=== PATIENT | male | born 1975 | race American Indian/Alaskan Native ===

== ENCOUNTER 2022-03-22 19:55 | Emergency (ER) | payer OTHER ==
[2022-03-22] MEDS ORDERED: ASPIRIN 325 MG TAB PO ONE (20:32)
[2022-03-22 21:04] LABS: Basophils % (Auto) 0.3 % (0.0-1.8); Hematocrit 42.6 % (35.5-45.6); Hemoglobin 14.2 gm/dl (11.8-15.2); Lymphocytes # (Auto) 1.2 K/mm3 (1.2-5.4); Lymphocytes % (Auto) 11.9 % (13.4-35.0); Mean Corpuscular HGB Conc 33 % (32-34); Mean Corpuscular Volume 81 fl (84-94); Monocytes # (Auto) 0.4 K/mm3 (0.0-0.8); Monocytes % (Auto) 4.1 % (0.0-7.3); Platelet Count 225 K/mm3 (140-440); Red Blood Count 5.24 M/mm3 (3.65-5.03); Red Cell Distribution Width 14.4 % (13.2-15.2)
--- NOTE | 2022-03-22 21:07 | XRay Report ---
XR chest routine 2V INDICATION / CLINICAL INFORMATION: CHEST PAIN. COMPARISON: None available. FINDINGS: SUPPORT DEVICES: None. HEART /PULMONARY VASCULATURE: No significant abnormality. LUNGS / PLEURA: No significant pulmonary or pleural abnormality. No pneumothorax. ADDITIONAL FINDINGS: No significant additional findings. IMPRESSION: 1. No acute findings. Signer Name: Alexandre Turcios MD Signed: 03/22/2022 9:03 PM Workstation Name: [id number]
[2022-03-22 21:29] LABS: Alanine Aminotransferase 55 units/L (7-56); Albumin 4.8 g/dL (3.9-5); BUN/Creatinine Ratio 9; Blood Urea Nitrogen 9 mg/dL (9-20); Calcium 9.9 mg/dL (8.4-10.2); Hemolysis Index 13
[2022-03-23] MEDS ORDERED: SODIUM CHLORIDE 0.9% 1000 ML 1,000 ML IV ONE (00:20)
[2022-03-23] MEDS ORDERED: METOCLOPRAMIDE 10 MG/2 ML INJ IV ONE (00:20)
[2022-03-23] MEDS ORDERED: diphenhydrAMINE 50 MG/ML VIAL IV ONE (00:20)
[2022-03-23] MEDS ORDERED: KETOROLAC 30 MG/1 ML INJ IV ONE (00:20)
--- NOTE | 2022-03-23 02:30 | Cat Scan Report ---
CT HEAD WITHOUT CONTRAST INDICATION: Headache TECHNIQUE: All CT scans at this location are performed using CT dose reduction for ALARA by means of automated exposure control. COMPARISON: None available. FINDINGS: BRAIN: No hemorrhage or mass effect are seen. No evidence of acute infarction is noted. Mild white ma tter microvascular changes. Small focal lacunar infarction in the posterior left putamen probably is old. ORBITS: Normal as visualized. SOFT TISSUES OF HEAD: Normal. CALVARIUM: Normal. VISUALIZED PARANASAL SINUSES AND MASTOID AIR CELLS: Clear. ADDITIONAL FINDINGS: None. IMPRESSION: No acute intracranial abnormality. Signer Name: Placido Thao MD Signed: 03/23/2022 2:26 AM Workstation Name: [id number]
--- NOTE | 2022-03-23 02:43 | Emergency Department Report ---
ED Headache HPI - General Chief Complaint: Chest Pain Stated Complaint: HEART PALPERTATIONS/CHEST PAIN Source: patient - History of Present Illness Initial Comments: Patient is a 46-year-old -[place] male with a history of migraine headaches who presents to the ED with complaint of acute exacerbation of his chronic migraine headaches with nausea and vomiting or chest tightness for the last 1 week, worse in the last 3 days. Patient states that he previously took wzqr-see-gxdntru medications for pain and which usually resolved the headache but in this latest episode, the aisy-ksy-fueeuou medication for pain have not helped. Patient states that he has had at least 8 episodes of nausea and vomiting in the last 12 hours. Patient denies dizziness, syncope, fever, chills, cough, palpitations, abdominal pain, diarrhea, dysuria, urinary frequency and urgency, sore throat, nasal and sinus congestion, neck pain or ch bernard in vision. Timing/Duration: 1 week, constant, waxing and waning Quality: severe, pressure, throbbing Head Injury Location: global Recent Head Trauma: no recent headache/trauma, chronic headaches Associated Symptoms: denies symptoms, nausea/vomiting, vision changes (Phot ophobia). denies: confusion, fatigue, facial pain, fever/chills, flushing, loss of consciousness, nasal congestion, nasal drainage, numbness in legs/feet, seizures, sinus infection, stiff neck, weakness, other Allergies/Adverse Reactions: Allergies No Known Allergies Allergy (Verified 03/23/22 00:21) Home Medications: Ambulatory Orders Butalb/Acetamin/Caff 50-325-40 [Fioricet 50-325-40] 1 - 2 tab PO Q6HR PRN #15 tab 03/23/22 Ketorolac [Toradol] 10 mg PO Q8H PRN #20 tab 03/23/22 Promethazine [Phenergan] 25 mg PO Q6HR PRN #30 tab 03/23/22 ED Review of Systems ROS: Stated complaint: HEART PALPERTATIONS/CHEST PAIN Other details as noted in HPI Constitutional: denies: chills, fever Eyes: denies: eye pain, eye discharge, vision change ENT: denies: ear pain, throat pain, dental pain, epistaxis, congestion Respiratory: denies: cough, shortness of breath, SOB with exertion, wheezing Cardiovascular: chest pain (Chest tightness). denies: palpitations Endocrine: no symptoms reported Gastrointestinal: nausea, vomiting. denies: abdominal pain, diarrhea Genitourinary: denies: urgency, dysuria Musculoskeletal: denies: back pain, joint swelling, arthralgia Skin: denies: rash, lesions Neurological: headache. denies: weakness, paresthesias Psychiatric: denies: anxiety, depression Hematological/Lymphatic: denies: easy bleeding, easy bruising ED Past Medical Hx - Past Medical History Previous Medical History?: Yes Hx Headaches / Migraines: Yes - Surgical History Past Surgical History?: No - Social History Smoking Status: Never Smoker Substance Use Type: None - Medications Home Medications: Home Medications Medication Instructions Recorded Confirmed Last Taken Type Butalb/Acetamin/Caff 50-325-40 1 - 2 tab PO Q6HR PRN #15 tab 03/23/22 Unknown Rx [Fioricet 50-325-40] Ketorolac [Toradol] 10 mg PO Q8H PRN #20 tab 03/23/22 Unknown Rx Promethazine [Phenergan] 25 mg PO Q6HR PRN #30 tab 03/23/22 Unknown Rx ED Physical Exam - General Limitations: No Limitations General appearance: alert, in no apparent distress - Head Head exam: Present: atraumatic, normocephalic, normal inspection - Eye Eye exam: Present: normal appearance, PERRL, EOMI Pupils: Present: normal accommodation - ENT ENT exam: Present: normal exam, normal orophraynx, mucous membranes moist, TM's normal bilaterally, normal external ear exam - Neck Neck exam: Present: normal inspection, full ROM. Absent: tenderness - Respiratory Respiratory exam: Present: normal lung sounds bilaterally. Absent: respiratory distress, wheezes, rales, rhonchi, chest wall tenderness, accessory muscle use, decreased breath sounds - Cardiovascular Cardiovascular Exam: Present: normal rhythm, tachycardia, normal heart sounds. Absent: systolic murmur, diastolic murmur, rubs, gallop - GI/Abdominal GI/Abdominal exam: Present: soft, normal bowel sounds. Absent: tenderness, guarding, hyperactive bowel sounds, hypoactive bowel sounds, organomegaly - Extremities Exam Extremities exam: Present: normal inspection, full ROM, normal capillary refill - Back Exam Back exam: Present: normal inspection, full ROM. Absent: tenderness, CVA tenderness (R), CVA tenderness (L), muscle spasm, paraspinal tenderness, vertebral tenderness - Neurological Exam Neurological exam: Present: alert, oriented X3, CN II-XII intact, normal gait, reflexes normal - Psychiatric Psychiatric exam: Present: normal affect, normal mood - Skin Skin exam: Present: warm, dry, intact, normal color. Absent: rash ED Course Vital Signs 03/22/22 03/22/22 20:30 22:03 Temperature 96.6 F L 98.9 F Pulse Rate 100 H 81 Respiratory 20 20 Rate Blood Pressure 185/109 153/96 [Left] O2 Sat by Pulse 100 100 Oximetry ED Medical Decision Making - Lab Data Result diagrams: 03/22/22 20:47 03/22/22 20:47 - Radiology Data Radiology results: report reviewed, image reviewed [facility] [address] [place] [address] XRay Report Signed Patient: ROSANNE MIRANDA MR#: [id number] 1 : 1975 Acct:[id number] Age/Sex: 46 / M ADM Date: 03/22/22 Loc: ED Attending Dr: Ordering Physician: ED MD ALEC Date of Service: 03/22/22 Procedure(s): XR chest routine 2V Accession Number(s): [id number] cc: ED MD ALEC Fluoro Time In Minutes: XR chest routine 2V INDICATION / CLINICAL INFORMATION: CHEST PAIN. COMPARISON: None available. FINDINGS: SUPPORT DEVICES: None. HEART /PULMONARY VASCULATURE: No significant abnormality. LUNGS / PLEURA: No significant pulmonary or pleural abnormality. No pneumothorax. ADDITIONAL FINDINGS: No significant additional findings. IMPRESSION: 1. No acute findings. Signer Name: Jenelle Turcios MD Signed: 03/22/2022 9:03 PM Workstation Name: [id number] Transcribed By: ALISON Dictated By: JENELLE TURCIOS MD Electronically Authenticated By: JENELLE TURCIOS MD Signed Date/Time: 03/22/222102 DD/ 01 TD/TT: [facility] [address] [place] [address] Cat Scan Report Signed Patient: ROSANNE MIRANDA MR#: [id number] 1 : 1975 Acct:[id number] Age/Sex: 46 / M ADM Date: 03/22/22 Loc: ED Attending Dr: Ordering Physician: MATT FAIRCHILD Date of Service: 03/23/22 Procedure(s): CT head/brain wo con Accession Number(s): [id number] cc: MATT FAIRCHILD CT HEAD WITHOUT CONTRAST INDICATION: Headache TECHNIQUE: All CT scans at this location are performed using CT dose reduction for ALARA by means of automated exposure control. COMPARISON: None available. FINDINGS: BRAIN: No hemorrhage or mass effect are seen. No evidence of acute infarction is noted. Mild white matter microvascular changes. Small focal lacunar infarction in the posterior left putamen probably is old. ORBITS: Normal as visualized. SOFT TISSUES OF HEAD: Normal. CALVARIUM: Normal. VISUALIZED PARANASAL SINUSES AND MASTOID AIR CELLS: Clear. ADDITIONAL FINDINGS: None. IMPRESSION: No acute intracranial abnormality. Signer Name: Placido Thao MD Signed: 03/23/2022 2:26 AM Workstation Name: [email or web address] [id number] Transcribed By: GJ Dictated By: Placido Thao MD Electronically Authenticated By: Placido Thao MD Signed Date/Time: 03/23/22225 DD/ 2 TD/TT: - Medical Decision Making This is a 46-year-old -[place] male with a history of migraine headaches who presents to the ED with complaint of acute exacerbation of his chronic migraine headaches with nausea and vomiting or chest tightness for the last 1 week, worse in the last 3 days. Patient states that he previously took kywv-sln-kmnyojh medications for pain and which usually resolved the headache but in this latest episode, the jnzr-evn-mldugfa medication for pain have not helped. Patient states that he has had at least 8 episodes of nausea and vomiting in the last 12 hours. In the ED, patient is alert and oriented x3 and is not in any distress. Patient was treated in the ED with pain medications, also given normal saline 1 L IV bolus x1. Patient was also treated for nausea and vomiting. Lab test results were reviewed and are all nonactionable. Head CT scan without contrast showed no acute intracranial abnormalities or hemorrhage. Chest x-ray showed no acute cardiopulmonary abnormalities or pneumonitis. On reevaluation, patient headache resolved, nausea and vomiting also resolved in the ED. Patient was discharged home on medications and advised to follow-up with the primary care physician in 5 to 7 days for reevaluation or return to the ED immediately if symptoms get worse. - Differential Diagnosis Migraine headache; tension headache; sinusitis; dehydration; Critical care attestation.: If time is entered above; I have spent that time in minutes in the direct care of this critically ill patient, excluding procedure time. ED Disposition Clinical Impression: Nausea and vomiting in adult patient Migraine headache without aura Qualifiers: Status migrainosus presence: without status migrainosus Intractability: not intractable Qualified Code(s): G43.009 - Migraine without aura, not intractable, without status migrainosus Disposition: 01 HOME / SELF CARE / HOMELESS Is pt being admited?: No Does the pt Need Aspirin: No Condition: Stable Instructions: Nausea and Vomiting, Adult, Kgys-uv-Rune, Migraine Headache, Nvjn-bk-Phox Additional Instructions: All lab test results were reviewed and are all nonactionable. Chest x-ray showed no acute cardiopulmonary abnormalities or pneumonitis. Head CT scan without contrast showed no acute intracranial abnormalities or hemorrhage. Therefore take medication with food, drink plenty of fluids, follow-up with your primary care physician in 5 to 7 days for reevaluation. Return to the ED immediately if symptoms get worse. Prescriptions: Butalb/Acetamin/Caff 50-325-40 [Fioricet 50-325-40] 1 - 2 tab PO Q6HR PRN #15 tab PRN Reason: Headache Promethazine [Phenergan] 25 mg PO Q6HR PRN #30 tab PRN Reason: Nausea Ketorolac [Toradol] 10 mg PO Q8H PRN #20 tab PRN Reason: Pain Referrals: CARBUCCIA,MARIANA, MD [Primary Care Provider] - 7-10 days Forms: Work/School Release Form(ED) Time of Disposition: 02:56 Print Language: GERMAN
[2022-03-23 03:33] VITALS: BP 157/95
--- NOTE | 2022-03-24 10:24 | Electrocardiograph Report ---
[facility] Test Date: 2022-03-22 Test Time: 20:24:01 Pat Name: ROSANNE MIRANDA Department: Room: Gender: M [employer] Farm[employer]: : 1975 Requested By: BRI FARMER Order Number: [id number] Reading MD: Tomás Jefferson Measurements Intervals [place] Rate: 97 P: 24 MD: 148 QRS: 17 QRSD: 78 T: -3 QT: 314 QTc: 399 Interpretive Statements Sinus rhythm [id number] No previous ECG available for comparison Electronically Signed On 03-24-2022 10:23:34 EDT by Tomás Jefferson
== END 2022-03-23 03:21 | disposition home or self-care (01) ==
LOC: ED 19:55
DX: G43.009 Migraine without aura, not intractable, without status migrainosus (principal); R11.2 Nausea with vomiting, unspecified; Z79.899 Other long term (current) drug therapy
CPT/HCPCS: 36415; 70450; 71046; 80053; 84484; 85025; 93005; 96361; 96374; 96375; 99284; J1200; J1885; J2765; J7030